=== PATIENT | female | born 1955 | race Caucasian/White ===

== ENCOUNTER 2017-03-10 10:35 | Outpatient (CLI) | payer MEDICARE ==
[2017-03-10 11:33] LABS: Hemoglobin A1c 6.5 % (4.0-6.0)
[2017-03-10 11:42] LABS: ALT (SGPT) 35 U/L (8-55); AST (SGOT) 28 U/L (5-34); Albumin 3.8 g/dL (3.5-5.0); Alkaline Phosphatase 102 U/L (40-150); Anion Gap 13 mmol/L (10-20); BUN (Urea Nitrogen) 18 mg/dL (9.8-20.1); Bilirubin, Total 0.6 mg/dL (0.2-1.2); Calc. Creatinine Clearance 0 mL/min (70-130); Calcium 9.4 mg/dL (7.8-10.44); Carbon Dioxide 23 mmol/L (22-29); Cardiac Risk 4.2 (Less than 4.5); Chloride 107 mmol/L (98-107); Cholesterol 229 mg/dl (< 200 Desired); Estimated GFR-MDRD 70; Globulin 3.8 g/dL (2.4-3.5); Glucose 122 mg/dL (70-105); HDL Cholesterol 55 mg/dL (>60 Neg Risk); LDL Cholesterol, Calculated 147 mg/dL; Potassium 4.4 mmol/L (3.5-5.1); Protein, Total 7.6 g/dL (6.0-8.3); Sodium 139 mmol/L (136-145); Triglycerides 134 mg/dL (Less than 150)
[2017-03-10 17:36] LABS: Creatinine, Urine 68.21 mg/dL (47-110); Microalbumin/Creat Ratio 175.9 mg/g (Less than 30)
== END 2017-03-10 10:36 | disposition home or self-care (01) ==
LOC: MADLABBHPM 10:35
PROVIDERS: ATTEND Family Medicine
DX: E78.2 Mixed hyperlipidemia (principal); E11.9 Type 2 diabetes mellitus without complications; I10 Essential (primary) hypertension
CPT/HCPCS: 36415; 80053; 80061; 82043; 83036; 84443

== ENCOUNTER 2017-04-01 13:59 | Outpatient (CLI) | payer MEDICARE ==
--- NOTE | 2017-04-01 15:36 | RAD ---
THREE VIEW LUMBAR SPINE SERIES: Clinical history: Back pain, acute. FINDINGS: There is posterior metallic fusion spanning L4 and L5 with bilateral vertical interconnecting rods a nd bilateral pedical screws within intervening disc space. Moderate multilevel degenerative change w ith osteophytosis of the lumbar spine present. No evidence of acute compression fracture. No signifi cant subluxation visualized. IMPRESSION: Degenerative and post-operative changes of the lumbar spine. No definite acute osseous abnormality. POS: [facility]
== END 2017-04-01 14:00 | disposition home or self-care (01) ==
LOC: MADRAD 13:59
PROVIDERS: ATTEND Family Medicine
DX: M54.41 Lumbago with sciatica, right side (principal); M47.816 Spondylosis without myelopathy or radiculopathy, lumbar region; Z98.1 Arthrodesis status
CPT/HCPCS: 72100

== ENCOUNTER 2017-12-13 11:23 | Outpatient (CLI) | payer MEDICARE | END 2017-12-13 11:24 | disposition home or self-care (01) | LOC: MADEKG 11:23 | PROVIDERS: ATTEND Family Medicine | DX: R53.83 Other fatigue (principal); Z86.79 Personal history of other diseases of the circulatory system | CPT/HCPCS: 93005; 93010 ==

== ENCOUNTER 2018-02-18 10:41 | Emergency (ER) | payer MEDICARE ==
[2018-02-18] MEDS ORDERED: AMOXicillin 250 MG CAP ONE (11:06)
[2018-02-18] MEDS ORDERED: Benzonatate 100 MG CAP ONE (11:06)
[2018-02-18] MEDS ORDERED: Naproxen 500 MG TAB ONE (11:06)
== END 2018-02-18 11:15 | disposition home or self-care (01) ==
LOC: MADERS 10:41
DX: J02.9 Acute pharyngitis, unspecified (principal); E11.9 Type 2 diabetes mellitus without complications; F32.9 Major depressive disorder, single episode, unspecified; Z79.84 Long term (current) use of oral hypoglycemic drugs
CPT/HCPCS: 99282

== ENCOUNTER 2018-03-27 05:47 | Outpatient (CLI) | payer MEDICARE ==
--- NOTE | 2018-03-27 08:59 | ULT ---
ABDOMEN ULTRASOUND: Date: 03/27/18 HISTORY: Pain over both kidneys. COMPARISON: None. TECHNIQUE: Utilizing a multihertz transducer, sonographic imaging of the abdomen is performed in the longitudina l and transverse plane. FINDINGS: Visualized IVC and aorta are unremarkable. Limited evaluation of the pancreas due to bowel gas. Increased hepatic parenchyma has a normal echotexture. No hepatic masses or intrahepatic biliary dila tation. Contour of the hepatic margin is maintained. Common bile duct diameter is 0.4 cm. Limited evaluation of the renal cortex. No obvious cortical masses. Bilaterally, no hydronephrosis. R ight kidney measures 5.5 x 3.1 x 8.8 cm. Left kidney measures 4.2 x 3.8 x 10.0 cm. Spleen appears to be echogenic with a maximum dimension of 12.5 cm. Gallbladder is surgically absent. IMPRESSION: 1. Unremarkable abdomen ultrasound. 2. Nonspecific increased echogenicity of the spleen. POS: [facility]
== END 2018-03-27 05:48 | disposition home or self-care (01) ==
LOC: MADRAD 05:47
PROVIDERS: ATTEND Family Medicine
DX: R10.817 Generalized abdominal tenderness (principal); R93.5 Abnormal findings on diagnostic imaging of other abdominal regions, including retroperitoneum
CPT/HCPCS: 76700